=== PATIENT | male | born 1950 | race Caucasian/White ===

== ENCOUNTER 2018-05-25 08:29 | Outpatient (CLI) | payer OTHER ==
--- NOTE | 2018-05-25 09:14 | RAD ---
LEFT SHOULDER 3 VIEWS: Date: 05/25/18 HISTORY: Arthritis, left shoulder pain. FINDINGS/IMPRESSION: There are degenerative changes in the acromioclavicular joint. No acute fracture, dislocation, or bon y destruction is identified. POS: [facility]
== END 2018-05-25 08:30 | disposition home or self-care (01) ==
LOC: MADRAD 08:29
PROVIDERS: ATTEND Orthopaedic Surgery
DX: M13.812 Other specified arthritis, left shoulder (principal); M19.012 Primary osteoarthritis, left shoulder